=== PATIENT | female | born 1995 | race Caucasian/White ===

== ENCOUNTER 2017-12-04 21:43 | Emergency (ER) | payer OTHER ==
[2017-12-04 22:07] VITALS: BP 132/75; PULSE 78; TEMP 98.4; BMI 21.2
[2017-12-04] MEDS ORDERED: AZITHROMYCIN 250 MG TABLET ONE (22:42)
[2017-12-04] MEDS ORDERED: AZITHROMYCIN 250 MG TABLET PO ONE (22:43)
--- NOTE | 2017-12-04 22:47 | PDOC ---
History of Present Illness - General Chief Complaint: Pain Stated Complaint: CONGESTION HEADACHE Time Seen by Provider: 12/04/17 21:49 History Source: Patient Exam Limitations: No Limitations (ALLERGIES where she can't tell you where she wants to go) - History of Present Illness Initial Comments: 12/04/17 22:47 This is a 22-year-old female who comes in complaining of cough and congestion times one week and now has developed pain in her maxillary sinuses. Patient has a history of sinusitis in the past. Patient denies any fevers or chills. Patient is otherwise healthy. PAST MEDICAL HISTORY: no significant history PAST SURGICAL HISTORY: no significant history FAMILY HISTORY: no pertinant history SOCIAL HISTORY: Pt lives with family and is employed. MEDICATIONS: reviewed ALLERGIES: As per nursing notes Review of Systems General: No fevers or chills, no weakness, no weight loss HEENT: No change in vision. No sore throat,. No ear pain CardioVascular: No chest pain or shortness of breath Respiratory:No cough, or wheezing. Gastrointestinal: no nausea, vomitting, diarrhea or constipation, No rectal bleeding Genitourinary: No dysuria, hematuria, or frequency Musculoskeletal: No joint or muscle pain or swelling Neurologic: No headache, vertigo, dizziness or loss of consciousness Psychiatric: nor depression Skin: No rashes or easy bruising Endocrine: no increased thirst or abnormal weight change Allergic: no skin or latex allergy All other systems reviewed and normal Exam: General: Well-nourished well-developed individual, no acute distress HEENT: Throat: Normal, tonsils normal, no erythema or exudate Neck: Supple, no meningeal signs, no lymphadenopathy FACE: There is some tenderness on palpation of the bilateral maxillary sinuses. Eyes::Pupils equal reactive and round, extraocular motion intact Chest: Nontender to palpation Cardiac: S1-S2 normal, regular rate and rhythm, no murmurs rubs or gallops Respiratory: Lungs clear to auscultation bilateral Abdomen: Soft, nondistended, normal bowel sounds, nontender to palpation diffusely Extremities: Warm, dry, no cyanosis, clubbing, or edema Skin: No rashes Neuro: Alert and oriented x3, CN II - XII intact, nonfocal exam with normal strength, normal sensation, normal reflexes, normal gait, Psych: Normal mood and affect Assessment and plan: This is a 22-year-old female who comes in complaining of cough congestion and has not developed pain over her sinuses. Patient's lungs are clear however she did have some tenderness and discomfort on percussion and purple palpation of the bilateral maxillary sinuses. Patient started on azithromycin and discharged home. Past History - Past Medical History Allergies/Adverse Reactions: Allergies Allergy/AdvReac Type Severity Reaction Status Date / Time cephalexin [Cephalexin] Allergy Verified 12/04/17 22:02 Home Medications: Ambulatory Orders Levonorgestrel [Mirena] 1 each IY ASDIR 10/13/16 Azithromycin 250 mg PO DAILY #4 tablet 12/04/17 COPD: No Other medical history: DENIES - Immunization History TDAP Vaccination: Yes Immunization Up to Date: Yes - Suicide/Smoking/Psychosocial Hx Smoking History: Never smoked Have you smoked in the past 12 months: No Number of Cigarettes Smoked Daily: 0 Cigars Per Day: 0 Information on smoking cessation initiated: No Hx Alcohol Use: No Drug/Substance Use Hx: No Substance Use Type: None *Physical Exam - Vital Signs Last Vital Signs Temp Pulse Resp BP Pulse Ox 98.4 F 78 16 132/75 100 12/04/17 22:03 12/04/17 22:03 12/04/17 22:03 12/04/17 22:03 12/04/17 22:03 *DC/Admit/Observation/Transfer Diagnosis at time of Disposition: Sinusitis Qualifiers: Sinusitis location: maxillary Chronicity: acute Recurrence: non-recurrent Qualified Code(s): J01.00 - Acute maxillary sinusitis, unspecified - Discharge Dispostion Disposition: HOME Condition at time of disposition: Stable Admit: No - Prescriptions Prescriptions: Azithromycin 250 mg PO DAILY #4 tablet - Referrals - Patient Instructions Additional Instructions: Take azithromycin 1 tablet a day for the next 4 days. You were given the first dose here in the emergency room your next dose doesn't need to be until tomorrow evening. Tylenol or Motrin as needed for pain. Return to the emergency department immediately with ANY new, persistent or worsening symptoms. Continue any medications as previously prescribed by your physician. You should follow up with your primary doctor as soon as possible regarding today's emergency department visit. . Please make sure your doctor reviews the results of your emergency evaluation. Thank you for coming to the Emergency Department today for your care. It was a pleasure to see you today. Please note that your evaluation is INCOMPLETE until you follow-up with your doctor. - Post Discharge Activity
== END 2017-12-04 22:50 | disposition home or self-care (01) ==
LOC: FER 21:43
DX: J01.00 Acute maxillary sinusitis, unspecified (principal)
CPT/HCPCS: 99281-25

== ENCOUNTER 2018-12-14 08:44 | Emergency (ER) | payer OTHER ==
[2018-12-14 08:53] VITALS: BP 126/71; PULSE 100; TEMP 98; BMI 23.5
[2018-12-14] MEDS ORDERED: IBUPROFEN 600 MG TABLET (FP) PO ONE ×2 (08:57→09:08)
--- NOTE | 2018-12-14 09:09 | PDOC ---
History of Present Illness - General Chief Complaint: Cold Symptoms Stated Complaint: SORE THROAT DRY COUGH LEFT EAR PAIN Time Seen by Provider: 12/14/18 08:47 History Source: Patient Exam Limitations: No Limitations - History of Present Illness Initial Comments: 12/14/18 09:01 23 YOF with no medical history presenting with 1 week of sore throat, left ear pain, FERNÁNDEZ, cough and congestion, subjective chills.. has been taking tylenol intermittently, last dose last night with some relief. tolerating po and fluid intake well. Denies fever, chest pain, SOB, palpitation, dizziness, weakness, N, V, D, abdominal pain, bladder and bowel problems, urinary sx, leg swelling, No sick contacts or travel. No new changes in medications. 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 Allergies: keflex Past Medical History: none Social history: Lives with family. No tobacco, ETOH or drug use. denies Surgical history: bunionectomy ROS General Medical GENERAL/CONSTITUTIONAL: No fever. No weakness. no sweats. +chills. HEAD, EYES, EARS, NOSE AND THROAT: No change in vision or hearing. +ear pain, sore throat, congestion. No mouth pain. No difficulty swallowing. No congestion. CARDIOVASCULAR: No chest pain or palpitations, syncope or edema. RESPIRATORY: No SOB, +cough. GASTROINTESTINAL No nausea/vomiting. No diarrhea or constipation. No abdominal pain. GENITOURINARY: No urinary changes. MUSCULOSKELETAL: No joint or muscle swelling or pain. No neck or back pain. no body aches. SKIN: No rash or changes in skin color or lesions. NEUROLOGIC: +headache, No loss of consciousness, or change in strength/ sensation. HEMATOLOGIC/LYMPHATIC: No anemia, easy bruising/bleeding, or history of blood clots. ALLERGIC/IMMUNOLOGIC: No environmental allergies All other systems reviewed and negative, or as documented in HPI. PE General: Well appearing, awake and alert, NAD. HEENT: NCAT, PERRL, EOMI, clear conjunctiva, anicteric, moist mucus membranes, clear oropharynx. Airway patent, normal phonation. Uvula midline. No sinus tenderness, TM clear, no pinna tenderness to manipulation. no lymphadenopathy. Neck: neck supple, FROM Resp: CTAB, normal and even respirations, no respiratory distress CVS: mild tachycardia, no murmurs, 2+ peripheral pulses throughout, no peripheral edema Abdomen: soft, nontender, no rebound or guarding. Back: nontender, normal inspection and ROM MSK: no edema, KIM x4, ROM intact. Neuro: alert Skin: warm and well perfused, cap refill <2 sec, normal color; no rashes Past History - Past Medical History Allergies/Adverse Reactions: Allergies Allergy/AdvReac Type Severity Reaction Status Date / Time cephalexin [Cephalexin] Allergy Verified 12/14/18 08:47 Home Medications: Ambulatory Orders Levonorgestrel [Mirena] 1 each IY ASDIR 10/13/16 COPD: No - Immunization History TDAP Vaccination: Yes Immunization Up to Date: Yes - Suicide/Smoking/Psychosocial Hx Smoking History: Never smoked Have you smoked in the past 12 months: No Number of Cigarettes Smoked Daily: 0 Cigars Per Day: 0 Information on smoking cessation initiated: No Hx Alcohol Use: Yes (SOCIAL) Drug/Substance Use Hx: No Substance Use Type: None *Physical Exam - Vital Signs Last Vital Signs Temp Pulse Resp BP Pulse Ox 98 F 100 H 16 126/71 99 12/14/18 08:46 12/14/18 08:46 12/14/18 08:46 12/14/18 08:46 12/14/18 08:46 Moderate Sedation - Procedure Monitoring Vital Signs: Procedure Monitoring Vital Signs Temperature 98 F 12/14/18 08:46 Pulse Rate 100 H 12/14/18 08:46 Respiratory Rate 16 12/14/18 08:46 Blood Pressure 126/71 12/14/18 08:46 O2 Sat by Pulse Oximetry (%) 99 12/14/18 08:46 Medical Decision Making - Medical Decision Making 12/14/18 09:09 hpi as documented VS reviewed, no fever, mild borderline tachy. no respiratory distress or hypoxia well appearing. DDx. viral vs strep pharyngitis, AOM, viral syndrome given motrin for pain. does not appear toxic or septic. strep_negative, f/u throat cultures supportive care instructions, salt water gargles and warm lemon/howard tea for soothing qualities. hydration encouraged dispo: Pt to be discharged in stable condition. Patient and family made aware of impression and plan, return precautions discussed (including but not limited to worsening pain or symptoms), fevers, or signs of infection, chest pain, respiratory distress, inability to tolerate oral intake, dehydration, syncope, or neurologic changes). Follow up with PMD as recommended, follow up information provided, take medications as instructed for duration of time. continue with supportive care, avoid triggers and precipitants. Patient does not suffer from an acute life-threatening medical condition at this time she is safe for outpatient follow-up. 12/14/18 10:09 *DC/Admit/Observation/Transfer Diagnosis at time of Disposition: Viral pharyngitis, URI (upper respiratory infection) - Discharge Dispostion Disposition: HOME Condition at time of disposition: Stable Decision to Admit order: No - Referrals Referrals: [facility] [Provider Group] [facility] [Provider Group] - Patient Instructions Printed Discharge Instructions: DI for Viral Upper Respiratory Infection -- Adult, DI for Viral Pharyngitis Additional Instructions: salt water gargles and warm lemon tea is appropriate as well for soothing qualities for sore throat/cough. minimize spread of infection given contagious nature, and cover your mouth and wash your hands adequately with soap and water. Stay well hydrated and rest. best to take motrin aleve or advil every 6 hours as needed for your throat and ear discomfort. most likely viral, which can last several weeks. your strep test is negative. follow up on your throat cultures. - Post Discharge Activity Forms/Work/School Notes: Back to Work
== END 2018-12-14 10:29 | disposition home or self-care (01) ==
LOC: FER 08:44
DX: J02.8 Acute pharyngitis due to other specified organisms (principal)
CPT/HCPCS: 87070; 87077; 87880; 99282-25

== ENCOUNTER 2018-12-22 21:19 | Emergency (ER) | payer OTHER ==
--- NOTE | 2018-12-22 21:29 | PDOC ---
History of Present Illness - History of Present Illness Initial Comments: This patient is a 23 year old female who presents with sore throat. Patient states that she was seen in our ER last weeks for 1 week of sore throat, left ear pain, FERNÁNDEZ, cough and congestion, subjective chills. She states that she was only given eye drops for her pink eye which has since resolved. Her only complaint today is her sore throat which has not gotten better. She states that it has been hard for her to talk and states that it is painful to swallow. She states that she has been gargling with salt water. She states that she has had strep throat in the past. She also endorses an occasional productive cough with yellow sputum that occurs mainly in the morning. Denies fever, congestion, sinus pressure, post-nasal drip. Allergies: keflex Past Medical History: none Social history: Lives with family. No tobacco, ETOH or drug use. denies . 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 Surgical history: bunionectomy <Lashawn Dempsey - Last Filed: 12/22/18 22:02> <Carmelita Castro - Last Filed: 12/23/18 02:05> - General Chief Complaint: Sore Throat Stated Complaint: SORE THROAT Time Seen by Provider: 12/22/18 21:26 Past History <Lashawn Dempsey - Last Filed: 12/22/18 22:02> - Past Medical History COPD: No - Immunization History TDAP Vaccination: Yes Immunization Up to Date: Yes - Suicide/Smoking/Psychosocial Hx Smoking History: Never smoked Have you smoked in the past 12 months: No Number of Cigarettes Smoked Daily: 0 Cigars Per Day: 0 Hx Alcohol Use: Yes (SOCIAL) Drug/Substance Use Hx: No Substance Use Type: None <Carmelita Castro - Last Filed: 12/23/18 02:05> - Past Medical History Allergies/Adverse Reactions: Allergies Allergy/AdvReac Type Severity Reaction Status Date / Time cephalexin [Cephalexin] Allergy Verified 12/14/18 08:47 Home Medications: Ambulatory Orders Levonorgestrel [Mirena] 1 each IY ASDIR 10/13/16 Polymyxin B Sulf/Trimethoprim [Polymyxin B-Tmp Eye Drops] 2 drp OP QID 7 Days # 10 ml 12/14/18 Azithromycin [Zithromax 250mg Tablets -] 250 mg PO UTDICT #6 tab 12/22/18 Review of Systems - Review of Systems Comments:: GENERAL/CONSTITUTIONAL: No fever or chills. No weakness. HEAD, EYES, EARS, NOSE AND THROAT: No change in vision. No ear pain or discharge. +sore throat. CARDIOVASCULAR: No chest pain or shortness of breath. RESPIRATORY: + productive cough (yellow sputum), no wheezing, or hemoptysis. GASTROINTESTINAL: No nausea, vomiting, diarrhea or constipation. GENITOURINARY: No dysuria, frequency, or change in urination. MUSCULOSKELETAL: No joint or muscle swelling or pain. No neck or back pain. SKIN: No rash NEUROLOGIC: No headache, vertigo, loss of consciousness, or change in strength/ sensation. ENDOCRINE: No increased thirst. No abnormal weight change. HEMATOLOGIC/LYMPHATIC: No anemia, easy bleeding, or history of blood clots. ALLERGIC/IMMUNOLOGIC: No hives or skin allergy. 12/22/18 22:08 <Lashawn Dempsey - Last Filed: 12/22/18 22:02> *Physical Exam - Vital Signs Last Vital Signs Temp Pulse Resp BP Pulse Ox 98.6 F 77 15 128/76 99 12/22/18 21:21 12/22/18 21:21 12/22/18 21:21 12/22/18 21:21 12/22/18 21:21 - Physical Exam Comments: GENERAL: Awake, alert, and fully oriented, in no acute distress HEAD: No signs of trauma EYES: PERRLA, EOMI, sclera anicteric, conjunctiva clear ENT: Auricles normal inspection, hearing grossly normal, nares patent, enlarged tonsils, pustules in oropharynx. NECK: Normal ROM, supple, b/l mildly edematous, mildly tender anterior lymphadenopathy, no JVD, or masses LUNGS: Breath sounds equal, clear to auscultation bilaterally. No wheezes, and no crackles HEART: Regular rate and rhythm, normal S1 and S2, no murmurs, rubs or gallops ABDOMEN: Soft, nontender, normoactive bowel sounds. No guarding, no rebound. No masses EXTREMITIES: Normal range of motion, no edema. No clubbing or cyanosis. No cords, erythema, or tenderness NEUROLOGICAL: Cranial nerves II through XII grossly intact. Normal speech, normal gait SKIN: Warm, Dry, normal turgor, no rashes or lesions noted. <Lashawn Dempsey - Last Filed: 12/22/18 22:02> Moderate Sedation - Procedure Monitoring Vital Signs: Procedure Monitoring Vital Signs Temperature 98.6 F 12/22/18 21:21 Pulse Rate 77 12/22/18 21:21 Respiratory Rate 15 12/22/18 21:21 Blood Pressure 128/76 12/22/18 21:21 O2 Sat by Pulse Oximetry (%) 99 12/22/18 21:21 <Lashawn Dempsey - Last Filed: 12/22/18 22:02> Medical Decision Making - Medical Decision Making Documentation has been prepared under my direction and personally reviewed by me in its entirety. I attest that this documented accurately reflects all work, treatment, procedures and medical decision making performed by me. As noted above, this otherwise healthy 23-year-old woman presents approximately one week after first presenting to the ER with sore throat/earache. Since then , the sore throat has persisted along with cough productive of scanty yellowish sputum. No fever/chills or other systemic symptoms present. Exam as noted with patchy whitish infiltrates on bilateral enlarged tonsils. Remainder of the exam is normal. Results of last weeks quick strep/throat culture: Negative quick strep, positive group B strep throat culture Repeat quick strep/throat culture sent. Today's quick strep is likewise negative. Throat culture sent. Because the patient has persistent symptoms and abnormal exam, although this may be colonization with group B strep, she will be treated with antibiotics. She has an ALLERGY to cephalexin; azithromycin Z-John will be prescribed. <Carmelita Castro - Last Filed: 12/23/18 02:05> *DC/Admit/Observation/Transfer - Attestations Scribe Attestion: 12/22/18 22:12 Documentation prepared by Lashawn Dempsey, acting as certified medical technician assistant for Carmelita Castro MD. <Lashawn Dempsey - Last Filed: 12/22/18 22:02> <Carmelita Castro - Last Filed: 12/23/18 02:05> Diagnosis at time of Disposition: Tonsillitis, Bronchitis - Discharge Dispostion Disposition: HOME Condition at time of disposition: Stable - Prescriptions Prescriptions: Azithromycin [Zithromax 250mg Tablets -] 250 mg PO UTDICT #6 tab - Patient Instructions Printed Discharge Instructions: DI for Pharyngitis/Tonsillopharyngitis -- Adult Additional Instructions: Rest; drink plenty of fluids Acetaminophen/ibuprofen as needed for pain Azithromycin (Z-John): Take as directed , starting tonight Return to ER if you have severe throat pain or shortness of breath/wheezing Follow-up with your general doctor within the next 5 days
[2018-12-22 21:48] VITALS: BP 128/76; PULSE 77; TEMP 98.6; BMI 23.4
[2018-12-22] MEDS ORDERED: ACETAMINOPHEN 325 MG TABLET (FP) ONE (22:31)
== END 2018-12-22 22:43 | disposition home or self-care (01) ==
LOC: FER 21:19
DX: J40 Bronchitis, not specified as acute or chronic (principal); J03.90 Acute tonsillitis, unspecified
CPT/HCPCS: 87070; 87077; 87880; 99281-25